=== PATIENT | male | born 1970 | race Caucasian/White ===

== ENCOUNTER 2024-11-25 12:58 | Emergency (ER) | payer SELFPAY ==
[~2024-11-25] VITALS: Ht 162.6 cm; Wt 145.2 kg
[2024-11-25 14:22] LABS: BASOPHILS ABSOLUTE AUTO 0.03 K/mm3 (0.00-0.23); BASOPHILS PERCENT AUTO 1 % (0-2); EOSINOPHILS ABSOLUTE AUTO 0.12 K/mm3 (0.00-0.68); EOSINOPHILS PERCENT AUTO 2 % (0-6); Hematocrit 42.5 % (37.0-53.0); Hemoglobin 15.9 g/dL (13.5-17.5); IMMATURE GRAN ABSOLUTE AUTO 0.01 K/mm3 (0.00-0.10); IMMATURE GRAN PERCENT AUTO 0 % (0-1); LYMPHOCYTES PERCENT AUTO 31 % (21-46); MONOCYTES ABSOLUTE AUTO 0.45 K/mm3 (0.16-1.47); MONOCYTES PERCENT AUTO 9 % (4-13); Mean Corpuscular HGB 31.1 pg (26.0-34.0); Mean Corpuscular HGB Conc 37.4 g/dL (31.5-36.5); Mean Corpuscular Volume 83 fL (80-100); NEUTROPHILS ABSOLUTE AUTO 3.03 K/mm3 (1.96-9.15); NEUTROPHILS PERCENT AUTO 58 % (41-73); RDW Coefficient Variation 11.3 % (11.7-14.2); RDW Standard Deviation 34.5 fL (35.1-46.3); Red Blood Cell Count 5.12 M/mm3 (4.30-5.90); White Blood Cell Count 5.24 K/mm3 (4.00-11.30)
[2024-11-25 14:23] LABS: Albumin, Blood 3.2 g/dL (3.4-5.0); Albumin/Globulin Ratio 0.7 (0.8-1.8); Bilirubin, Total 0.5 mg/dL (0.1-1.0); Bun/Creatinine Ratio 24.6 (12.0-20.0); Calcium, Blood 8.7 mg/dL (8.5-10.1); Creatinine, Blood 0.61 mg/dL (0.60-1.20); Globulin, Blood 4.4 g/dL (2.2-4.0); Potassium, Blood 4.6 mmol/L (3.5-5.5); Total Protein, Blood 7.6 g/dL (6.4-8.2)
[2024-11-25 14:38] LABS: Platelet Count 350 K/mm3 (150-400)
[2024-11-25] MEDS ORDERED: NS 1,000 ML IV SCH (16:20)
[2024-11-25 17:12] LABS: Base Excess Venous 2.4 mmol/L; Bicarbonate Venous 26.2 mmol/L (24.0-30.0); PCO2 Venous 41.7 mmHg (38-42); pH Blood Venous 7.42 (7.34-7.37)
[2024-11-25] MEDS ORDERED: Insulin Regular 100 Unit/ML 1ML Dose IV ONE (17:15)
[2024-11-25] MEDS ORDERED: MOTRIN IB200 MG PO (17:25)
[2024-11-25] MEDS ORDERED: ACET500 PO (17:25)
[2024-11-25] MEDS ORDERED: Acetaminophen 500 MG Tab PO ONE (17:40)
[2024-11-25] MEDS ORDERED: Ibuprofen 600 MG Tab PO ONE (17:40)
== END 2024-11-25 18:51 | disposition home or self-care (01) ==
LOC: ER 12:58
PROVIDERS: Physician Assistant; Student in an Organized Health Care Education/Training Program
DX: M70.842 Other soft tissue disorders related to use, overuse and pressure, left hand (principal); E11.65 Type 2 diabetes mellitus with hyperglycemia; I10 Essential (primary) hypertension; E78.5 Hyperlipidemia, unspecified
CPT/HCPCS: 73130; 80053; 82010; 82803; 82947; 85025; 93005; 93010; 93971; 99284-25; A9270; J7030